=== PATIENT | male | born 1950 | race Caucasian/White ===

== ENCOUNTER 2024-02-13 05:58 | Day surgery (SDC) | payer MEDICARE ==
[2024-02-13] MEDS ORDERED: Lactated Ringers 1,000 ML IV ONE (06:13)
[2024-02-13] MEDS: Lactated Ringers 1,000 ML IV SCH (06:22)
[2024-02-13 06:42] VITALS: RESP 16
[2024-02-13 07:10] LABS: ANION GAP 17.4 MEQ/L (5-15); Calcium 9.3 mg/dL (8.4-10.2); Creatinine 1 1.19 mg/dL (0.66-1.25); EST GLOMERULAR FILTRATION RATE 65.3 ML/MIN; Potassium 4.5 mmol/L (3.5-5.1)
[2024-02-13] MEDS ORDERED: DIPRIVAN 200 MG/20 ML IV ONE (07:31)
[2024-02-13 08:25] VITALS: TEMP 97.7
[2024-02-13 08:42] VITALS: BP 116/83; PULSE 66; O2SAT 92
--- NOTE | 2024-02-13 17:04 | OP ---
SURGERY DATE/TIME: 02/13/2024 0415 - [id number] PREOPERATIVE DIAGNOSIS: Screening exam, previous history of colon polyps 8 years ago. POSTOPERATIVE DIAGNOSIS: PROCEDURE: Colonoscopy. SURGEON: Stone Devries MD ANESTHESIA: Medication given by the anesthesia department. INDICATIONS: The patient is a 73-year-old white male patient presenting now for a screening evaluation. He was apprised of the risks of the procedure including the risk of perforation, phlebitis, untoward reaction to medication, bleeding, and missed lesions. The patient verbalized understanding and desired to have the procedure performed. DESCRIPTION OF PROCEDURE AND FINDINGS: The patient was given medication by the anesthesia department and continuous pulse oximetry, ECG monitoring, and intermittent blood pressure monitoring during the examination. He was placed in left lateral decubitus position. Digital rectal examination was performed and revealed normal anal sphincter tone and no masses and normal prostate. The flexible Olympus videocolonoscope was used to intubate the rectum. A view of the colon was developed sequentially to the cecum. Upon insertion and withdrawal including retroflexion in the rectum, no mucosal lesions were encountered. The scope was removed. The patient tolerated the procedure well and was sent to outpatient recovery in good condition. The prep was noted to be fair to good.
== END 2024-02-13 08:49 | disposition home or self-care (01) ==
LOC: SDC 05:58
PROVIDERS: ATTEND Family Medicine
DX: Z12.11 Encounter for screening for malignant neoplasm of colon (principal); Z09 Encounter for follow-up examination after completed treatment for conditions other than malignant neoplasm; Z86.010 Personal history of colon polyps; I10 Essential (primary) hypertension
CPT/HCPCS: 36415; 80048; 93005; G0121; J2704